=== PATIENT | male | born 1975 ===

== ENCOUNTER 2021-03-26 22:30 | Emergency (ER) | payer SELFPAY ==
--- NOTE | 2021-03-26 23:51 | EDM.PDOC ---
ED HPI GENERAL MEDICAL PROBLEM - General Chief Complaint: Respiratory Problem Stated Complaint: DIZZINESS / COUGHING NO TEMP Time Seen by Provider: 03/26/21 23:40 Source of Information: Reports: Patient History Limitations: Reports: No Limitations - History of Present Illness INITIAL COMMENTS - FREE TEXT/NARRATIVE: Pt is here for COVID symptoms that started yesterday. He started coughing, having some shortness of breath as well as loss of taste and smell. He did not get his COVID vaccine because he doesn't like needles. He does have a fever and body aches as well as chills. No known exposure to COVID, but someone he was around earlier in the week had a cough, but he told the pt he did not have COVID. - Related Data Allergies Allergy/AdvReac Type Severity Reaction Status Date / Time No Known Allergies Allergy Verified 03/26/21 23:01 Home Meds: Home Meds . [No Known Home Meds] 03/26/21 [History] Past Medical History - Past Health History Medical/Surgical History: Denies Medical/Surgical History HEENT History: Reports: None Cardiovascular History: Reports: Heart Murmur Respiratory History: Reports: None Gastrointestinal History: Reports: None Genitourinary History: Reports: None Musculoskeletal History: Reports: None Neurological History: Reports: None Psychiatric History: Reports: None Endocrine/Metabolic History: Reports: None Hematologic History: Reports: None Immunologic History: Reports: None Oncologic (Cancer) History: Reports: None Dermatologic History: Reports: None - Infectious Disease History Infectious Disease History: Reports: None - Past Surgical History Head Surgeries/Procedures: Reports: None Social & Family History - Family History Family Medical History: No Pertinent Family History - Tobacco Use Tobacco Use Status *Q: Never Tobacco User - Recreational Drug Use Recreational Drug Use: No ED ROS GENERAL - Review of Systems Review Of Systems: Comprehensive ROS is negative, except as noted in HPI. ED EXAM, GENERAL - Physical Exam Exam: See Below Exam Limited By: No Limitations General Appearance: Alert, WD/WN, No Apparent Distress Eye Exam: Bilateral Eye: Normal Inspection Ears: Normal External Exam Throat/Mouth: Normal Voice, No Airway Compromise Head: Atraumatic, Normocephalic Neck: Supple, Non-Tender Respiratory/Chest: No Respiratory Distress, Lungs Clear, Normal Breath Sounds, No Accessory Muscle Use, Chest Non-Tender Cardiovascular: Normal Peripheral Pulses, Regular Rate, Rhythm, No Murmur GI/Abdominal: Soft, Non-Tender (Male) Exam: Deferred Rectal (Males) Exam: Deferred Back Exam: Normal Inspection, Full Range of Motion Extremities: Normal Inspection, Normal Range of Motion, Normal Capillary Refill Neurological: Alert, Oriented, Normal Cognition, No Motor/Sensory Deficits Psychiatric: Normal Affect, Normal Mood Skin Exam: Warm, Dry, Intact, Normal Color, No Rash Course - Vital Signs Last Recorded V/S: Last Vital Signs Temp 97 F 03/26/21 22:55 Pulse 97 03/26/21 22:55 Resp 20 03/26/21 22:55 BP 120/75 03/26/21 22:55 Pulse Ox 94 L 03/26/21 22:55 - Orders/Labs/Meds Labs: Laboratory Tests 03/26/21 Range/Units 22:51 SARS-CoV-2 RNA ([facility]) Positive H (NEGATIVE) - Re-Assessments/Exams Free Text/Narrative Re-Assessment/Exam: Reviewed positive COVID test result with the pt. Pt has remained stable with oxygen saturations 98-99% on room air. Advised pt that, should his COVID get worse, he will be getting more needles than just the 2 shots that would have been the vaccine. Reviewed reasons to call/return to the ER if needed. Discussed quarantine precautions and duration. 03/26/21 23:49 Departure - Departure Time of Disposition: 23:51 Disposition: Home, Self-Care 01 Condition: Fair Clinical Impression: COVID - Discharge Information *PRESCRIPTION DRUG MONITORING PROGRAM REVIEWED*: Not Applicable *COPY OF PRESCRIPTION DRUG MONITORING REPORT IN PATIENT DEMOND: Not Applicable Instructions: 10 Things You Can Do to Manage Your COVID-19 Symptoms at Home - CDC (01/06/2020), What You Should Know About COVID-19 to Protect Yourself and Others - CDC Additional Instructions: Quarantine at home until 10 days after your symptoms started. If symptoms worsen, call/return to the ER Follow up with your primary care provider in 10-14 days Sepsis Event Note (ED) - Evaluation Sepsis Screening Result: No Definite Risk - Focused Exam Vital Signs: Vital Signs Temp Pulse Resp BP Pulse Ox 03/26/21 22:55 97 F 97 20 120/75 94 L
== END 2021-03-27 00:02 | disposition home or self-care (01) ==
LOC: DL.ED 22:30
DX: U07.1 COVID-19 (principal)
CPT/HCPCS: 99284; U0002